=== PATIENT | female | born 1955 | race Caucasian/White ===

== ENCOUNTER 2017-02-28 07:02 | Day surgery (SDC) | payer BC ==
[~2017-02-28] VITALS: Ht 152.4 cm; Wt 66.3 kg
[~2017-02-28 07:02] MED LIST: ALEN70TA2 PO; CYAN100099 PO; DOXY25TA42 PO; LIDOCAINE 1% (10mg/ml) 2ml SDV INJ ONE; LISI-621 PO; LR 1,000 ML IV SCH; MULT-578 PO; ROSU10TA PO
--- OUTSIDE RECORDS SUMMARY | 2017-02-28 07:05 | XMS REPORT | Continuity of Care Document ---
Author Author [facility] Organization [facility] Address Unknown Phone Unavailable Support Name Relationship Address Phone JESSICA FERGUSON CHIP SEPARATOR Caregiver [facility] [address] [place] [address] VONDA HEMPHILL MD Caregiver [address] [place] [address] ROHAN DON Next Of Kin [address] [place] [address] Insurance Providers Payer Name Policy Number Subscriber Name Relationship [employer] Other [id number] MiliRohan Spouse Advance Directives Directive Response Recorded Date/Time Ordered Resuscitation Status Full Code 12/10/14 10:38am Resuscitation Documents on File No 12/10/14 9:44am Problems No known problems or medical conditions. Medications Medication Dose Route Sig Days/Qty Instructions Order Date Discontinued Date Status Meloxicam 15 Mg PO DAILY 60 Qty 12/01/14 Active Rosuvastatin Calcium 10 Mg PO BEDTIME 30 Qty 12/01/14 Active Alendronate Sodium 70 Mg PO WKLY 12/01/14 Active Lisinopril 1 Tab PO DAILY 12/01/14 Active Multivitamin 2 Tab PO DAILY 12/01/14 Active Doxylamine Succinate 1 Tab PO NEEDED PRN SLEEP 12/11/14 Active Social History Social History Problem Response Recorded Date/Time Chewing Tobacco Status No 12/01/2014 3:07pm Hx Substance Use No 12/01/2014 3:07pm Hx Alcohol Use N AUG 2014 12/01/2014 3:07pm Has the pt used tobacco in the last 12 months Yes 12/01/2014 3:07pm Query Response Start Date Stop Date Smoking Status Current every day smoker Hospital Discharge Instructions No hospital discharge instructions. Plan of Care No plan of care. Functional Status No functional status results. Allergies, Adverse Reactions, Alerts Allergen Type Severity Reaction Status Last Updated Sulfa (Sulfonamide Antibiotics) Allergy Unknown SWELLING, HIVES Active Codeine Allergy Unknown ITCHING Active 12/01/14 Immunizations Name Given Type Hx Influenza Vaccination Y JUL 2014 Historical Hx Pneumococcal Vaccination Y 2012 Historical Hx Influenza Vaccination Y JUL 2014 Historical Vital Signs Acute Vital Signs Vital Response Date/Time Temperature (Fahrenheit) 97.7 deg F (96.8 - 99.1) Temperature (Calculated Celsius) 36.61174 degrees C (36.0 - 37.3) Temperature Source Temporal Pulse Rate (adult) 72 bpm (60 - 100) Respiratory Rate 16 breaths/min (10 - 20) O2 Sat by Pulse Oximetry 97 % (90 - 100) Oxygen Delivery Method Room Air Blood Pressure 116/65 mm Hg Blood Pressure Source Automatic Cuff Height 5 ft 1 in Weight 153 lb Body Mass Index 28.0 kg/m^2 Results No known relevant diagnostic tests, laboratory data and/or discharge summary. Procedures Procedure Status Date Provider(s) Carpal tunnel release completed 12/11/14 VONDA HEMPHILL MD
--- OUTSIDE RECORDS SUMMARY | 2017-02-28 07:05 | XMS REPORT | Continuity of Care Document ---
Author Author [facility] Organization [facility] Address Unknown Phone Unavailable Support Name Relationship Address Phone JESSICA FERGUSON SPORTS MARKETING SPECIALIST Caregiver [facility] [address] [place] [address] VONDA HEMPHILL MD Caregiver [address] [place] [address] ROHAN DON Next Of Kin [address] [place] [address] Insurance Providers Payer Name Policy Number Subscriber Name Relationship [employer] Other [id number] MiliRohan Spouse Advance Directives Directive Response Recorded Date/Time Ordered Resuscitation Status Full Code 12/22/14 4:27pm Resuscitation Documents on File No 12/22/14 3:18pm Problems No known problems or medical conditions. [...] Tab PO NEEDED PRN SLEEP 12/11/14 Active Ibuprofen 1 Cap PO Q4H PRN PAIN 12/23/14 Active Social History Social History Problem Response Recorded Date/Time Chewing Tobacco Status No 12/22/2014 12:01pm Hx Substance Use No 12/22/2014 12:01pm Hx Alcohol Use N AUG 2014 12/22/2014 12:01pm Has the pt used tobacco in the last 12 months Yes 12/22/2014 12:01pm Query Response Start Date Stop Date Smoking [...] Vital Signs Vital Response Date/Time Temperature (Fahrenheit) 98.2 deg F (96.8 - 99.1) Temperature (Calculated Celsius) 36.16015 degrees C (36.0 - 37.3) Temperature Source Temporal Pulse Rate (adult) 77 bpm (60 - 100) Respiratory Rate 16 breaths/min (10 - 20) O2 Sat by Pulse Oximetry 100 % (90 - 100) Oxygen Delivery Method Room Air Blood Pressure 157/67 mm Hg Blood Pressure Source Automatic Cuff Height 5 ft 0.5 in Weight 217 lb Body Mass Index 41.0 kg/m^2 Results No known relevant diagnostic tests, laboratory data and/or discharge summary. Procedures Procedure Status Date Provider(s) CARPAL TUNNEL SURGERY completed 12/11/14 VONDA HEMPHILL MD "INJECTION, CEFAZOLIN SODIUM, 500 MG" completed 12/11/14"INJECTION, ONDANSETRON HYDROCHLORIDE, PER 1 MG" completed 12/11/14 PROPOFOL INJ 500 MG/50ML completed 12/11/14"INJECTION, FENTANYL CITRATE, 0.1 MG" completed 12/11/14"RINGERS LACTATE INFUSION, UP TO 1000 CC" completed 12/11/14"INJECTION, BUPIVICAINE HYDROCHLORIDE, 30 ML" completed 12/11/14 Carpal tunnel release completed 12/23/14 VONDA HEMPHILL MD
--- OUTSIDE RECORDS SUMMARY | 2017-02-28 07:05 | XMS REPORT | Referral Summary ---
Author Organization Unknown Address Unknown Phone Unavailable Care Team Providers Care Fence Gate Assembler Name Role Phone Efrem Hendrix Primary Care Physician [phone] Encounter VC RAINA [id number] Date(s): 12/14/14 - 12/14/14 [facility] [address] [place] [address] Discharge Diagnosis: Acute constipation Discharge Disposition: Home or Self Care Vital Signs Most recent to 1 oldest [Reference Range]: Temperature Oral 36.6 degC [35.8-37.3 degC] (12/14/14 4:56 PM) Peripheral Pulse 102 bpm 1 Rate [60-100 bpm] *HI* (12/14/14 7:33 PM) Heart Rate Monitored 92 bpm [60-100 bpm] (12/14/14 6:49 PM) Respiratory Rate 17 br/min [14-20 br/min] (12/14/14 7:33 PM) Blood Pressure 135/92 mmHg [90-140/60-90 mmHg] (12/14/14 7:33 PM) Mean Arterial 101 mmHg Pressure, Cuff (12/14/14 6:49 PM) Most recent to 1 oldest [Reference Range]: SpO2 99 % (12/14/14 7:33 PM) 1Result Comment: Mago Valenzuela notified of pain and HR, no new orders Problem List Condition Effective Dates Status Health Status Informant Acute Active patient pain(Confirmed) High Active patient cholesterol(Confirme d) Hypertension(Confirm Active patient ed) Cervical Active patient cancer(Confirmed) Nondependent alcohol Active abuse, continuous (disorder)(Confirmed ) Osteoporosis Active (disorder)(Confirmed ) Overweight Active (finding)(Confirmed) Tissue perfusion Active patient alteration(Confirmed )1 Tobacco Active patient user(Confirmed) 1Problem added automatically by system based on initiation of Tissue Perfusion Cerebral Plan of Care Allergies, Adverse Reactions, Alerts Substance Reaction Severity Status sulfanilamide topical Active Medications Ailve Gummy Vitamin Ailve Gummy Vitamin, 2 chewable daily, 0 Refill(s) Special Instructions: 2 chewable daily Start Date: 09/03/14 Status: Ordered aspirin 81 mg, Oral, Daily, Pain - Breakthrough, 0 Refill(s) Start Date: 09/03/14 Status: Ordered Crestor 10 mg, Oral, Daily, 0 Refill(s) Start Date: 09/03/14 Status: Ordered lisinopril 10 mg, Oral, Daily, 0 Refill(s) Start Date: 09/03/14 Status: Ordered MiraLax oral powder for reconstitution 17 g, Oral, Daily, dissolve in water before taking, # 255 g, 0 Refill(s) Special Instructions: dissolve in water before taking Start Date: 12/14/14 Stop Date: 12/21/14 Status: Ordered Tums 1,500 mg, Chewed, Daily, Dyspepsia/Indigestion, 0 Refill(s) Start Date: 09/03/14 Status: Ordered Results No data available for this section Immunizations Vaccine Date Refusal Reason diphtheria/pertussis, acel/tetanus ped 09/04/03 diphtheria/pertussis, acel/tetanus ped 08/05/03 diphtheria/pertussis, acel/tetanus ped 03/10/03 Procedures Procedure Date Related Diagnosis Body Site Hysterectomy 11/13/73 Carpal tunnel release1 1right Social History Social History Type Response Smoking Status Current every day smoker; Tobacco use per day: More than 1 pack Assessment and Plan No data available for this section
[2017-02-28 07:17] VITALS: Ht 152.4 cm; Wt 66.3 kg
[2017-02-28 07:18] VITALS: BP 132/78; PULSE 86; RESP 16; TEMP 98; O2SAT 99
--- NOTE | 2017-02-28 07:25 | ANESPREOP ---
Anesthesia Record Date and Time DATE: 02/28/17 TIME: 07:23 Pre-Op Diagnosis crcs Proposed Surgical Procedure COLONOSCOPY Allergies: Coded Allergies: Sulfa (Sulfonamide Antibiotics) (Unverified Allergy, Unknown, SWELLING, HIVES, 02/27/17) codeine (Unverified Allergy, Unknown, ITCHING, 02/27/17) Ht/Wt/BMI Height: 5 ' 0.00 " Weight: 66.300 kg BMI: 28.6 kg/m2 Vital Signs Date Time Temp Pulse Resp B/P Pulse Ox O2 Delivery O2 Flow Rate FiO2 02/28/17 07:18 98.0 86 16 132/78 99 Room Air Medications Inpatient Medications Current Medications Medications (Trade) Dose Ordered Sig/Karolina Start Time Stop Time Status Last Admin Dose Admin Lactated Ringer's (Lactated Ringers) 1,000 ml @ 50 mls/hr Q20H 02/28/17 07:00 Alendronate Sodium (Fosamax) 70 Mg Tablet, 70 MG PO WKLY, (Reported) Cyanocobalamin (Vitamin B-12) (B-12) 1,000 Mcg Tablet, 1 TAB PO DAILY, (Reported ) Doxylamine Succinate (Unisom Sleep Aid) 25 Mg Tablet, 1 TAB PO PRN PRN for SLEEP , (Reported) Lisinopril (Lisinopril) 20 Mg Tablet, 1 TAB PO DAILY, (Reported) Multivitamin (Gummy Swirls) 1 Each Tab.chew, 2 TAB PO DAILY, (Reported) Rosuvastatin Calcium (Crestor) 10 Mg Tablet, 10 MG PO HS, (Reported) Currently on Beta Blu: No Medical/Surgical History Anesthesia PMH: Reports: *Hypertension (controlled with meds), Arthritis (HANDS ), Cancer (CERVICAL CA-SURGERY ONLY), Denies: *Angina, *Diabetes, *Dyspnea, *NM , Anesthesia Reactions (no airway issues), Asthma, Blood Transfusion Reac, CHF, COPD, CVA/Stroke/TIA, Clotting Problems, Deep Vein Thrombosis, Glaucoma, Hepatitis, Hiatal Hernia, Malignant Hyperthermia, Pneumonia, Reflux, Renal Disease, Seizures, Sleep Apnea, Thyroid Disease, Tuberculosis Smoking Status: Current every day smoker Has pt. smoked today?: Yes Use Chewing Tobacco?: No Second Hand Exposure: No Substance Use Type: does not use Substance last used: unknown Alcohol Intake: none, daily Last Drink: unknown HX of Last Menstrual Period: hyst. full Past Surgical History Orthopedic Surgeries: Yes - LEV. CTR Abdominal Surgeries: Genitourinary Surgeries: Cardiac Surgeries: Endocrine Surgeries: Reproductive Surgeries: Yes - ABD HYST-AGE 19 Neurological Surgeries: Ear Surgeries: Nose Surgeries: Throat Surgeries: Other Surgeries: Yes - COLONOSCOPY Anesthesia Adverse Reactions: FOUND none Family Hx of Anesthesia Advers: none Hx of Motion Sickness: No Pertinent Findings EKG Rhythm: Sinus Rhythm Physical Exam Respiratory: Bilat breath sounds equal, Lungs clear Cardiovascular: FOUND Regular rate, rhythm, FOUND No murmur Airway Assessment Mallampati Score: I TMD: 3 Fingerbreadths Neck Extension: Good Overall Assessment: No Airway Concerns ASA: 2 Plan Anesthesia Plan: TIVA Discussion Discussed risks/options/alternatives of anesthesia and questions answered. Patient consents. Nursing pain assessment noted. Attestation Statement Prior to the delivery of any anesthetic medication, I examined the patient, developed the plan, obtained the patient's consent and discussed the risk and benefits of the procedure with the patient/guardian. ELADIA SMITH CRNA Feb 28, 2017 07:25
[2017-02-28] MEDS ORDERED: PROPOFOL 500mg 50 ML IV ONE (10:05)
[2017-02-28] MEDS ORDERED: LIDOCAINE 1% (10mg/ml) 2ml SDV ONE (10:05)
[2017-02-28] MEDS ORDERED: FENTANYL 100mcg/2ml INJECTION ONE (10:26)
[2017-02-28] MEDS ORDERED: PROPOFOL 200mg 20 ML IV ONE (10:29)
[2017-02-28 10:56] VITALS: BP 63/33; PULSE 69; RESP 20; TEMP 97; O2SAT 94
--- NOTE | 2017-02-28 11:06 | GSPOSTPROC ---
Immediate Operative Note DATE: 02/28/17 TIME: 11:05 Postop Diagnosis: Colon polyps Surgical Procedure: C-scope w/Polypectomy Surgeon: Nataliia ASA: 2 ALEX MCKNIGHT MD Feb 28, 2017 11:06
[2017-02-28 11:08] VITALS: BP 95/54
[2017-02-28 11:23] VITALS: BP 93/54; PULSE 76; RESP 16; O2SAT 97
[2017-02-28 11:38] VITALS: BP 117/69; PULSE 66; RESP 16; O2SAT 97
--- NOTE | 2017-02-28 11:41 | OPNOTEF ---
DATE OF OPERATION 02/28/2017 PREOPERATIVE DIAGNOSIS Desire for screening for colon and rectal carcinoma. POSTOPERATIVE DIAGNOSES 1. Desire for screening for colon and rectal carcinoma. 2. Five colon polyps. 3. Internal and external hemorrhoids. OPERATION Total colonoscopy with polypectomy. SURGEON Dr. Nataliia DAS ASA CLASS 2 FINDINGS There were no colon or rectal tumors. The patient did have five colon polyps. These polyps were located 25 cm proximal to the anal verge, 24 cm proximal to the anal verge, 45 cm proximal to the anal verge, 30 cm proximal to the anal verge and 29 cm proximal to the anal verge. There were no colonic angiodysplasia lesions. There was no melanosis coli. There was no inflammatory bowel disease. There was no colonic diverticulosis. The patient does have some internal and external hemorrhoids. DESCRIPTION OF OPERATION The patient was brought to the endoscopy room. The patient was placed on a cart in the endoscopy room. The patient was placed in left lateral recumbent position on the cart in the endoscopy room. The patient was premedicated with intravenous sedation medication administered by the nurse manager global. The Olympus colonoscope was used. The colonoscope was introduced into the rectum. The colonoscope was advanced up through the colon. A polyp was identified at a level 25 cm proximal to the anal verge. This polyp was removed with three bites of the cold endoscopic biopsy forceps and submitted as a specimen for study by the pathologist. Another polyp was identified at a level 24 cm proximal to the anal verge. This polyp was removed with one bite of the cold endoscopic biopsy forceps and submitted as a specimen for study by the pathologist. The colonoscope was advanced further up through the colon. Another polyp was identified at a level 45 cm proximal to the anal verge. This polyp was removed with the electrocautery snare device and retrieved and submitted as a specimen for study by the pathologist. The colonoscope was advanced the remainder of the way up through the colon all the way up to the cecum. The appendiceal orifice was visualized. The ileocecal valve was visualized. Light was seen transilluminating from the tip of the colonoscope through the wall of the abdomen at the right inguinal area. The colonoscope was then withdrawn out through the colon. As the colonoscope was withdrawn out through the colon, another polyp was identified at a level 30 cm proximal to the anal verge. This polyp was removed with the electrocautery snare device and retrieved and submitted as a specimen for study by the pathologist. Another polyp was identified at a level 29 cm proximal to the anal verge. This polyp was removed with the electrocautery snare device and retrieved and submitted as a specimen for study by the pathologist. The colonoscope was then withdrawn the remainder of the way out through the colon and rectum and removed from the patient. Digital rectal examination was performed. Findings throughout the procedure were as described above. The patient did continue to receive intravenous sedation medication administered by the nurse manager global throughout the operation. The patient did tolerate the operation well. TESS
--- NOTE | 2017-02-28 12:08 | ANESPO ---
Post-Op Note Date 02/28/17 Time: 12:07 Status Pt Participated in Evaluation: Pt participated in person Vital Signs Date Time Temp Pulse Resp B/P Pulse Ox O2 Delivery O2 Flow Rate FiO2 02/28/17 11:38 66 16 117/69 97 Room Air 02/28/17 10:56 97.0 Respiratory Function: Airway patent, Regular respirations Cardiovascular Function: Regular pulse Mental Status: Alert/oriented Pain Level Intensity: 0 Hydration: Taking po fluids Complications during Recovery None apparent Post-Anesthesia Notes pt. stephon. well Follow-Up Instructions Instructions Per Surgeon Additional Information none ELADIA SMITH CRNA Feb 28, 2017 12:08
[2017-02-28 12:09] VITALS: BP 121/68; PULSE 70; RESP 16; O2SAT 95
== END 2017-02-28 12:13 | disposition home or self-care (01) ==
LOC: NSC 07:02
PROVIDERS: ATTEND Surgery
DX: Z12.11 Encounter for screening for malignant neoplasm of colon (principal); D12.5 Benign neoplasm of sigmoid colon; K51.40 Inflammatory polyps of colon without complications; K64.4 Residual hemorrhoidal skin tags; K64.8 Other hemorrhoids
CPT/HCPCS: 45380; 45385; J2704; J3010; J7120

== ENCOUNTER → 2017-03-01 | Outpatient (CLI) | payer BC ==
[~2017-03-01] MED LIST changes: -LIDOCAINE 1% (10mg/ml) 2ml SDV INJ ONE; -LR 1,000 ML IV SCH
[2017-03-01 15:18] LABS: BASOPHILS % (AUTO) 0.5 % (0-2); EOSINOPHILS # (AUTO) 0.1 T/MM3 (0-0.5); EOSINOPHILS % (AUTO) 1.1 % (0-4); HCT - HEMATOCRIT 42.6 % (36-46); HGB - HEMOGLOBIN 14.8 GM/DL (12-16); IMMATURE GRANULOCYTE # (AUTO) 0.01 T/MM3 (0.00-0.03); IMMATURE GRANULOCYTE % (AUTO) 0.2 % (0.0-0.5); LYMPHOCYTES # (AUTO) 2.4 T/MM3 (1-4.8); LYMPHOCYTES % (AUTO) 35.5 % (23-45); MEAN CORPUSCULAR HGB 32.4 UUG (26-34); MEAN CORPUSCULAR HGB CONC(MCHC 34.7 GM/DL (31-37); MEAN CORPUSCULAR VOLUME 93.2 UM3 (80-100); MEAN PLATELET VOLUME 9.5 UM3 (9.4-12.4); MONOCYTES # (AUTO) 0.4 T/MM3 (0-0.8); MONOCYTES % (AUTO) 5.7 % (0-9.0); NEUTROPHILS #(AUTO)-ABSOLUTE 3.8 T/MM3 (1.8-7.7); RED BLOOD COUNT 4.57 M/MM3 (4.00-5.20); WBC - WHITE BLOOD COUNT 6.6 T/MM3 (4.5-11.0)
--- NOTE | 2017-03-01 15:43 | DI ---
Indication: ITS.REASON: R10.9 ABD PAIN PROCEDURE: KUB W/UPRIGHT: Encounter: Initial Comparison: None Findings: The visualized lung bases are clear. There is no free air on the upright view. The bowel gas pattern is nonobstructive and nonspecific. Gas is seen in nondilated small and large bowel to the level of the sigmoid. Surgical clips in the pelvis. Impression: Nonobstructive nonspecific bowel gas pattern. .
== END ==
LOC: IMA 15:03
PROVIDERS: ATTEND Surgery
DX: R10.32 Left lower quadrant pain (principal)
CPT/HCPCS: 36415; 85025